=== PATIENT | female | born 1980 | race Caucasian/White ===

== ENCOUNTER 2016-08-22 06:27 | Day surgery (SDC) | payer OTHER ==
[2016-08-22] MEDS ORDERED: Lactated Ringers 1,000 ML IV SCH (07:00)
[2016-08-22] MEDS ORDERED: Lidocaine 2% 5 ML SDV ONE (07:07)
[2016-08-22] MEDS ORDERED: Midazolam 1 MG/ML 2 ML SDV ONE (07:08)
[2016-08-22] MEDS ORDERED: Propofol 200 MG/20 ML SDV ONE (07:08)
[2016-08-22] MEDS ORDERED: fentaNYL 250 MCG/5 ML SDV ONE (07:08)
[2016-08-22] MEDS ORDERED: Ondansetron 4 MG/2 ML SDV ONE (07:15)
[2016-08-22] MEDS ORDERED: Ketorolac 30 MG/ML SDV ONE (07:15)
--- NOTE | 2016-08-22 07:18 | PCM.PREANE ---
Preanesthetic Assessment - Anesthesia/Transfusion/Family Hx Anesthesia History: Prior Anesthesia Without Reaction Family History of Anesthesia Reaction: No Transfusion History: No Prior Transfusion(s) - Review of Systems General: No Symptoms Pulmonary: No Symptoms Cardiovascular: No Symptoms Gastrointestinal: No symptoms Neurological: No Symptoms Other: Reports: None - Physical Assessment O2 Sat by Pulse Oximetry: 100 Respiratory Rate: 16 Vital Signs: Last Vital Signs Temp 37.1 C 08/22/16 06:58 Pulse 70 08/22/16 06:58 Resp 16 08/22/16 06:58 BP 147/92 H 08/22/16 06:58 Pulse Ox 100 08/22/16 06:58 Height: 1.52 m Weight: 69.4 kg ASA Class: 2 Mental Status: Alert & Oriented x3 Airway Class: Mallampati = 2 Dentition: Reports: Normal Dentition Thyro-Mental Finger Breadths: 3 Mouth Opening Finger Breadths: 3 ROM/Head Extension: Full Lungs: Clear to auscultation, Normal respiratory effort Cardiovascular: Regular Rate, Regular Rhythm - Lab Values: Laboratory Last Values WBC 6.56 K/uL (4.0-11.0) 08/22/16 06:52 RBC 4.28 M/uL (4.30-5.90) L 08/22/16 06:52 Hgb 13.7 g/dL (12.0-16.0) 08/22/16 06:52 Hct 39.5 % (36.0-46.0) 08/22/16 06:52 MCV 92.3 fL (80.0-98.0) 08/22/16 06:52 MCH 32.0 pg (27.0-32.0) 08/22/16 06:52 MCHC 34.7 g/dL (31.0-37.0) 08/22/16 06:52 RDW Std Deviation 41.6 fl (28.0-62.0) 08/22/16 06:52 RDW Coeff of Derek 12 % (11.0-15.0) 08/22/16 06:52 Plt Count 237 K/uL (150-400) 08/22/16 06:52 MPV 9.80 fL (7.40-12.00) 08/22/16 06:52 Neut % (Auto) 71.6 % (48.0-80.0) 08/22/16 06:52 Lymph % (Auto) 20.0 % (16.0-40.0) 08/22/16 06:52 Becker % (Auto) 7.0 % (0.0-15.0) 08/22/16 06:52 Eos % (Auto) 1.1 % (0.0-7.0) 08/22/16 06:52 Baso % (Auto) 0.3 % (0.0-1.5) 08/22/16 06:52 Neut # (Auto) 4.7 K/uL (1.4-5.7) 08/22/16 06:52 Lymph # (Auto) 1.3 K/uL (0.6-2.4) 08/22/16 06:52 Becker # (Auto) 0.5 K/uL (0.0-0.8) 08/22/16 06:52 Eos # (Auto) 0.1 K/uL (0.0-0.7) 08/22/16 06:52 Baso # (Auto) 0.0 K/uL (0.0-0.1) 08/22/16 06:52 Nucleated RBC % 0.0 /100WBC 08/22/16 06:52 Nucleated RBCs # 0 K/uL 08/22/16 06:52 - Allergies Allergies/Adverse Reactions: Allergies Allergy/AdvReac Type Severity Reaction Status Date / Time No Known Allergies Allergy Verified 08/18/16 10:31 - Blood Blood Available: No - Anesthesia Plan Pre-Op Medication Ordered: None - Acknowledgements Anesthesia Type Planned: General Anesthesia Pt an Appropriate Candidate for the Planned Anesthesia: Yes Alternatives and Risks of Anesthesia Discussed w Pt/Guardian: Yes Pt/Guardian Understands and Agrees with Anesthesia Plan: Yes PreAnesthesia Questionnaire Cardiovascular History: Reports: Other (see below) Other Cardiovascular History: hx of elevated BP during C[employer] 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: Musculoskeletal History: Reports: Fracture Neurological History: Reports: Other (see below) (absance seizures as child) Psychiatric History: Reports: Anxiety, Depression Endocrine/Metabolic History: Reports: Hypothyroidism, Obesity/BMI 30+ - Past Surgical History Head Surgeries/Procedures: Reports: None HEENT Surgical History: Reports: Oral surgery GI Surgical History: Reports: Hernia, abdominal Other GI Surgeries/Procedures: hx of hernia repair Female Surgical History: Reports: Breast reconstruction, section, LEEP Other Female Surgeries/Procedures: hx breast augmentation and reconstruction Other Musculoskeletal Surgeries/Procedures:: hx surgery for fx wrist and hand ( pinning) - SUBSTANCE USE Smoking Status *Q: Never Smoker Recreational Drug Use History: No - HOME MEDS Home Medications: Home Meds Thyroid,Pork [Nature-Throid] 1 tab PO DAILY 08/18/16 [History] - CURRENT (IN HOUSE) MEDS Current Meds: Current Medications Lactated Ringer's (Ringers, Lactated) 1,000 mls @ 100 mls/hr IV ASDIRECTED ROXANNA Discontinued Medications Fentanyl (Sublimaze) Confirm Administered Dose 250 mcg .ROUTE .STK-MED ONE Stop: 08/22/16 07:09 Lidocaine (Xylocaine-Mpf 2%) Confirm Administered Dose 10 ml .ROUTE .STK-MED ONE Stop: 08/22/16 07:08 Midazolam HCl (Versed 1 Mg/Ml) Confirm Administered Dose 2 mg .ROUTE .STK-MED ONE Stop: 08/22/16 07:09 Propofol (Diprivan 20 Ml) Confirm Administered Dose 400 mg .ROUTE .STK-MED ONE Stop: 08/22/16 07:09
[2016-08-22] MEDS ORDERED: Misoprostol 200 MCG Tab ONE (07:31)
[2016-08-22] MEDS ORDERED: Doxycycline 100 MG in Sodium Chloride 0.9% 100 ML IV SCH (07:45)
[2016-08-22] MEDS ORDERED: Methylergonovine 0.2 MG/1 ML Amp ONE (08:06)
[2016-08-22] MEDS ORDERED: Acetaminophen/Codeine 300-30 MG Tab PO PRN (08:29)
[2016-08-22] MEDS ORDERED: fentaNYL 100 MCG/2 ML SDV IVPUSH PRN (08:30)
--- NOTE | 2016-08-22 08:38 | PCM.OPNOTE ---
[id number] and currettage. Sharp currettage. Placement of 1000mcg of rectal cyctotec Findings: Anteverted uterus approximately 10wks in size, bilaterally normal palpating adnexa. Uterus sounded to 9 cm initially. Disrupted posterior lip of cervix. Heavier than expected bleeding. Pre Op Diagnosis: Embryonic demise at 8wks. Desires surgical intervention Post-Op Diagnosis: Same Anesthesia Technique: General LMA Primary Surgeon: Lucila Woodruff Anesthesia Provider: Rocío [facility] Supervisor: Preet Hernandez Pathology: Products of conception Fluid Replacement, Intraop: 750 EBL in mLs: 300 Complications: None known Condition: Good Free Text/Narrative:: JobID#[id number]
[2016-08-22 12:11] VITALS: BP 141/78
--- NOTE | 2016-08-23 04:37 | OR ---
SURGEON: Lucila Woodruff DATE OF PROCEDURE: 08/22/2016 BRIEF PREOPERATIVE HISTORY: This is a 35-year-old, G 3, P 1, who presented to [facility] for a new OB visit and at the time of viability ultrasound, was found to have embryonic demise at 8 weeks gestation, just 3 days off her expected eight weeks and 3 days gestational age. There was no noted cardiac activity at that time and patient was counseled at that point on embryonic demise. It was discussed with patient no intervention for minimum of two weeks to see if she would be able to pass the embryonic demise on her own with no intervention versus medical intervention with misoprostol or surgical intervention with dilation and curettage. It was discussed with the patient that the most risky of all interventions was surgical as it had the risk of bleeding, infection, possible damage to the bowel, the bladder, ureters, nerves, blood vessels or possible causing intrauterine synechiae, uterine perforation or the most remote hysterectomy. The patient was also apprised of the fact of general anesthesia with the risk of general anesthesia and the risk of thromboembolic disease. The patient was allowed to think about various interventions for addressing her missed at this point. The patient called back a day later and desired surgical intervention, being apprised of all the risk of surgical intervention. PREOPERATIVE DIAGNOSES: 1. Embryonic demise at 8 weeks. 2. Desired surgical intervention. POSTOPERATIVE DIAGNOSES: 1. Embryonic demise at 8 weeks. 2. Desired surgical intervention. PROCEDURE PERFORMED: 1. Suction, dilation and curettage. 2. Sharp curettage. 3. Placement of 1000 mcg of rectal Cytotec. ANESTHESIA: General with LMA. ESTIMATED BLOOD LOSS: 300 mL. FLUID REPLACEMENT: In the OR was 750 mL. PATHOLOGY: Products of conception. FINDINGS: Anteverted uterus, approximately 10 weeks in size, bilateral normal palpating adnexa and ovaries. Uterus sounded to approximately 9 cm initially. Disrupted posterior lip of the cervix. Heavier than expected bleeding at the time of curettage. COMPLICATIONS: None known. CONDITION: Good. DESCRIPTION OF PROCEDURE: The patient was taken to the operating room, moved to her OR bed. In the OR, the patient did have Venodynes placed and they were operational prior to induction of general anesthesia. Once general anesthesia was appropriate, the patient was then placed in the dorsal lithotomy position in the [facility]. The patient then was examined under anesthesia and found to have approximately 10 week anteverted uterus with normal palpating adnexa. The patient was not noted to be bleeding at this point. Afterwards, the patient was then prepped and draped in the normal sterile fashion. A time-out was held to ensure appropriate patient, appropriate position, appropriate procedure. Of note, the patient did receive intraoperative doxycycline and would finish out in the PACU as it was not available preoperatively. After time-out was held, a speculum was then placed in the patient's vagina and the anterior lip of the cervix was grasped with a long Allis clamp. The uterus was then sounded with endometrial Pipelle and was found to be 9 cm in depth. A curved 7 suction curette was used. The suction curette was then advanced gently to the uterine fundus and with slow clockwise movements as the suction curette was retracted, tissue was noted in the suction curette tubing. There were several more passes with additional tissues. After removal of the suction curette, a port was placed on hold and a sharp uterine curette was used to scrape the uterus in all 4 quadrants until the uterine cry could be noted by the gritty texture. The were several more passes with the suction curette. A little more than expected bleeding was noted. The patient did receive IM Methergine. The patient also did receive 1000 mcg of rectal Cytotec. The gloves were changed and the patient's bleeding was monitored for a little bit longer and bleeding greatly improved. The patient's vagina was cleared of all clots and debris. Instruments were removed from patient's vagina. The patient was cleansed and pads were changed. The patient was taken down out of [facility]. The patient tolerated the procedure well. Sponge, lap, needle, and instrument counts were correct. The patient was eventually removed from the postoperative bed and taken to the PACU in awake and stable condition. The patient tolerated the procedure well. SASHA MASTERS /[id number] ROBERTO
== END 2016-08-22 09:55 | disposition home or self-care (01) ==
LOC: MW.SDS 06:27
PROVIDERS: ATTEND Obstetrics & Gynecology
PROC: 10D17ZZ Extraction of Products of Conception, Retained, Via Natural or Artificial Opening (ICD-10-PCS; principal; 2016-08-22)
PROC: 0U7C7ZZ Dilation of Cervix, Via Natural or Artificial Opening (ICD-10-PCS; 2016-08-22)
DX: O02.1 Missed abortion (principal); O99.284 Endocrine, nutritional and metabolic diseases complicating childbirth; E03.9 Hypothyroidism, unspecified; Z3A.08 8 weeks gestation of pregnancy
CPT/HCPCS: 36415; 59820; 85025; 86850; 86900; 86901; A9270; J1885; J2210; J2250; J2405; J3010; J7120; 01965; 88305; J2704

== ENCOUNTER 2019-02-27 10:32 | Observation (INO) | payer OTHER ==
--- NOTE | 2019-02-27 12:44 | US ---
EXAM DATE: 02/27/19 PATIENT'S AGE: 38 Biophysical profile: Multiple real-time images were obtained transabdominally. Transvaginal images of the cervix were also obtained. Comparison: Previous obstetrical ultrasound not available for current . Findings: presentation: Cephalic Placenta: Anterior with no findings of placenta previa, no findings of abruption Amniotic fluid: KACEY 15.50 cm Cervix is closed with a length of 5.4 cm Biophysical profile: movement 2, breathing movement 2, tone 2 , amniotic fluid volume 2 Impression: 1. Single intrauterine fetus currently cephalic in presentation. 2. No findings of placenta previa. Normal cervical length. 3. 8 out of 8 on biophysical profile. Diagnostic code #1 Report Signed by Proxy. ROBERTO
--- NOTE | 2019-02-27 12:45 | US ---
EXAM DATE: 02/27/19 PATIENT'S AGE: 38 This study was dictated as part of previous obstetrical ultrasound. ROBERTO
[2019-02-27] MEDS ORDERED: metroNIDAZOLE 250 MG Tab PO ONE (18:29)
[2019-02-27] MEDS ORDERED: Labetalol 100 MG Tab PO ONE (18:30)
[2019-02-27 19:03] VITALS: BP 121/76; PULSE 86
== END 2019-02-28 09:10 | disposition home or self-care (01) ==
LOC: MW.OBCHECK 10:32 → MW.OB 10:32 → MW.OBCHECK 11:22 → MW.OB 11:22
PROVIDERS: ADMIT Obstetrics & Gynecology; ATTEND Obstetrics & Gynecology
DX: O46.92 Antepartum hemorrhage, unspecified, second trimester (principal); O09.522 Supervision of elderly multigravida, second trimester; Z3A.27 27 weeks gestation of pregnancy
CPT/HCPCS: 59025; 76817; 76819; 87480; 87510; 87660; A9270; G0378

== ENCOUNTER 2019-05-01 15:22 | Inpatient (IN) | payer OTHER ==
[2019-05-01] MEDS ORDERED: Labetalol 100 MG Tab PO STA (16:04)
[2019-05-01 16:56] LABS: BLOOD UREA NITROGEN,BUN 8 mg/dL (7.0-18.0); CARBON DIOXIDE,CO2 21.2 mmol/L (21.0-32.0); CHLORIDE,CL 104 mmol/L (98-107); GLUCOSE RANDOM 74 mg/dL (74-106); POTASSIUM,K 4.2 mmol/L (3.5-5.1); SODIUM,NA 137 mmol/L (136-145)
[2019-05-01] MEDS ORDERED: Morphine PF 10 MG/10 ML SDV ONE (17:15)
[2019-05-01] MEDS ORDERED: Sodium Chloride 0.9% 10 ML Syringe FLUSH PRN (17:17)
[2019-05-01] MEDS ORDERED: Citric Acid/Sodium Citrate Solution 30 ML Cup PO ONE (17:17)
[2019-05-01] MEDS ORDERED: ceFAZolin 2 GM in Premix Bag 1 BAG IV ONE (17:17)
[2019-05-01] MEDS ORDERED: Sodium Chloride 0.9% 2.5 ML Syringe FLUSH PRN (17:17)
[2019-05-01] MEDS ORDERED: Sodium Chloride 0.9% 10 ML SDV IV PRN (17:17)
[2019-05-01] MEDS ORDERED: Ketorolac 30 MG/ML SDV ONE (17:19)
[2019-05-01] MEDS ORDERED: Ondansetron 4 MG/2 ML SDV ONE (17:19)
[2019-05-01] MEDS ORDERED: Oxytocin 10 Units/1 ML SDV ONE (17:19)
[2019-05-01] MEDS ORDERED: Phenylephrine/Normal Saline 100 MCG/ML 10 ML Syringe ONE (17:20)
[2019-05-01] MEDS ORDERED: Calcium Gluconate 10% 1 GM/10 ML SDV IV PRN (17:24)
[2019-05-01] MEDS ORDERED: Labetalol 100 MG/20 ML MDV IVPUSH PRN (17:24)
[2019-05-01] MEDS ORDERED: Magnesium Sulfate/Water 4 GM in Premix Bag 1 BAG IV ONE (17:24)
[2019-05-01] MEDS ORDERED: Lactated Ringers 1,000 ML IV SCH ×2 (17:30→21:00)
[2019-05-01] MEDS ORDERED: Oxytocin/0.9 % Sodium Chloride 30 UNIT/500 ML BAG IV SCH (17:30)
--- NOTE | 2019-05-01 17:32 | PCM.PREANE ---
Preanesthetic Assessment - Anesthesia/Transfusion/Family Hx Anesthesia History: Prior Anesthesia Without Reaction Family History of Anesthesia Reaction: No Transfusion History: No Prior Transfusion(s) - Physical Assessment NPO Status Date: 05/01/19 NPO Status Time: 14:00 Height: 1.65 m Weight: 88.904 kg ASA Class: 1E Dentition: Reports: Normal Dentition Thyro-Mental Finger Breadths: 3 Mouth Opening Finger Breadths: 3 ROM/Head Extension: Full - Lab Values: Laboratory Last Values WBC 7.85 K/uL (4.0-11.0) 05/01/19 16:04 RBC 4.20 M/uL (4.30-5.90) L 05/01/19 16:04 Hgb 12.9 g/dL (12.0-16.0) 05/01/19 16:04 Hct 38.8 % (36.0-46.0) 05/01/19 16:04 MCV 92.4 fL (80.0-98.0) 05/01/19 16:04 MCH 30.7 pg (27.0-32.0) 05/01/19 16:04 MCHC 33.2 g/dL (31.0-37.0) 05/01/19 16:04 RDW Std Deviation 45.8 fl (28.0-62.0) 05/01/19 16:04 RDW Coeff of Derek 14 % (11.0-15.0) 05/01/19 16:04 Plt Count 227 K/uL (150-400) 05/01/19 16:04 MPV 11.00 fL (7.40-12.00) 05/01/19 16:04 Neut % (Auto) 76.0 % (48.0-80.0) 05/01/19 16:04 Lymph % (Auto) 15.4 % (16.0-40.0) L 05/01/19 16:04 Cascade % (Auto) 6.8 % (0.0-15.0) 05/01/19 16:04 Eos % (Auto) 1.4 % (0.0-7.0) 05/01/19 16:04 Baso % (Auto) 0.4 % (0.0-1.5) 05/01/19 16:04 Neut # (Auto) 6.0 K/uL (1.4-5.7) H 05/01/19 16:04 Lymph # (Auto) 1.2 K/uL (0.6-2.4) 05/01/19 16:04 Cascade # (Auto) 0.5 K/uL (0.0-0.8) 05/01/19 16:04 Eos # (Auto) 0.1 K/uL (0.0-0.7) 05/01/19 16:04 Baso # (Auto) 0.0 K/uL (0.0-0.1) 05/01/19 16:04 Nucleated RBC % 0.0 /100WBC 05/01/19 16:04 Nucleated RBCs # 0 K/uL 05/01/19 16:04 Sodium 137 mmol/L (136-145) 05/01/19 16:04 Potassium 4.2 mmol/L (3.5-5.1) 05/01/19 16:04 Chloride 104 mmol/L (98-107) 05/01/19 16:04 Carbon Dioxide 21.2 mmol/L (21.0-32.0) 05/01/19 16:04 BUN 8 mg/dL (7.0-18.0) 05/01/19 16:04 Creatinine 0.7 mg/dL (0.6-1.0) 05/01/19 16:04 Est Cr Clr Drug Dosing 99.98 mL/min 05/01/19 16:04 Estimated GFR (MDRD) > 60.0 ml/min 05/01/19 16:04 Glucose 74 mg/dL (74-106) 05/01/19 16:04 Uric Acid 4.6 mg/dL (2.6-7.2) 05/01/19 16:04 Calcium 8.7 mg/dL (8.5-10.1) 05/01/19 16:04 Total Bilirubin 0.4 mg/dL (0.2-1.0) 05/01/19 16:04 AST 22 IU/L (15-37) 05/01/19 16:04 ALT 24 IU/L (14-63) 05/01/19 16:04 Alkaline Phosphatase 140 U/L (46-116) H 05/01/19 16:04 Total Protein 6.7 g/dL (6.4-8.2) 05/01/19 16:04 Albumin 2.7 g/dL (3.4-5.0) L 05/01/19 16:04 Globulin 4.0 g/dL (2.6-4.0) 05/01/19 16:04 Albumin/Globulin Ratio 0.7 (0.9-1.6) L 05/01/19 16:04 TSH 3rd Generation 1.55 uIU/mL (0.36-3.74) 05/01/19 16:04 Ur Random Creatinine 38.0 mg/dL 05/01/19 16:04 U Random Total Protein 14.2 mg/dL (<11.9) H 05/01/19 16:04 Protein/Creatinin Ratio 0.4 05/01/19 16:04 - Allergies Allergies/Adverse Reactions: Allergies Allergy/AdvReac Type Severity Reaction Status Date / Time lisinopril Allergy Rash Verified 05/01/19 15:39 - Acknowledgements Anesthesia Type Planned: Spinal Pt an Appropriate Candidate for the Planned Anesthesia: Yes Alternatives and Risks of Anesthesia Discussed w Pt/Guardian: Yes Pt/Guardian Understands and Agrees with Anesthesia Plan: Yes PreAnesthesia Questionnaire Cardiovascular History: Reports: Hypertension Other Cardiovascular History: 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: Musculoskeletal History: Reports: Fracture Neurological History: Reports: Other (See Below) Psychiatric History: Reports: Anxiety, Depression Endocrine/Metabolic History: Reports: Hypothyroidism, Obesity/BMI 30+ - Infectious Disease History Infectious Disease History: Reports: Chicken Pox - Past Surgical History Head Surgeries/Procedures: Reports: None HEENT Surgical History: Reports: Oral Surgery GI Surgical History: Reports: Hernia, Abdominal, Other (See Below) Other GI Surgeries/Procedures: surgery 2010 Female Surgical History: Reports: Breast Reconstruction, Section, LEEP, Other (See Below) Other Female Surgeries/Procedures: D&C 2 years ago Other Musculoskeletal Surgeries/Procedures:: 2009 hx surgery for fx wrist and hand (pinning) - HOME MEDS Home Medications: Home Meds Aspirin 81 mg PO DAILY 02/27/19 [History] Labetalol [Normodyne] 100 mg PO BID 02/27/19 [History] No.116/Iron/Folic/Dha [Expecta Combo Pack] 02/27/19 [History] Sertraline [Zoloft] 50 mg PO DAILY 02/27/19 [History] Thyroid,Pork [Nature-Throid] 02/27/19 [History] - CURRENT (IN HOUSE) MEDS Current Meds: Current Medications Discontinued Medications Ketorolac Tromethamine (Toradol) Confirm Administered Dose 30 mg .ROUTE .STK- MED ONE Stop: 05/01/19 17:20 Labetalol HCl (Normodyne) 400 mg PO ONETIME STA Stop: 05/01/19 16:05 Morphine Sulfate (Duramorph Pf) Confirm Administered Dose 10 mg .ROUTE .STK-MED ONE Stop: 05/01/19 17:16 Ondansetron HCl (Zofran) Confirm Administered Dose 4 mg .ROUTE .STK-MED ONE Stop: 05/01/19 17:20 Oxytocin (Pitocin) Confirm Administered Dose 20 unit .ROUTE .STK-MED ONE Stop: 05/01/19 17:20 Phenylephrine HCl (Phenylephrine In Ns 100 Mcg/Ml) Confirm Administered Dose 1 mg .ROUTE .STK-MED ONE Stop: 05/01/19 17:21
[2019-05-01] MEDS ORDERED: Labetalol 100 MG/20 ML MDV ONE (18:06)
[2019-05-01] MEDS: Magnesium Sulfate/Water 20 GM/500 ML BAG IV SCH (18:55)
[2019-05-01] MEDS ORDERED: Octyl 2-Cyanoacrylate 1 Tube ONE (19:44)
[2019-05-01] MEDS ORDERED: Acetaminophen/oxyCODONE 325-5 MG Tab PO PRN ×2 (20:20→20:54)
[2019-05-01] MEDS ORDERED: fentaNYL 100 MCG/2 ML SDV IVPUSH PRN (20:20)
[2019-05-01] MEDS ORDERED: Nalbuphine 10 MG/1 ML Vial IVPUSH PRN (20:20)
--- NOTE | 2019-05-01 20:53 | PCM.OPNOTE ---
- General Post-Op/Procedure Note Date of Surgery/Procedure: 05/01/19 Operative Procedure(s): repeat low transverse Findings: Liveborn male 9/7 weight pending, normal pelvis Pre Op Diagnosis: 36 3/7 weeks, chronic hypertension with severe pre-eclampsia, previous Post-Op Diagnosis: Same Anesthesia Technique: Spinal Primary Surgeon: Kim Quintana Anesthesia Provider: Raheem Petit [employer] Technician: Jose J Holman Pathology: placenta to pathology. Fluid Replacement, Intraop: 1,500 EBL in mLs: 600 Complications: None Known Condition: Good
[2019-05-01] MEDS ORDERED: Ondansetron 4 MG/2 ML SDV IVPUSH PRN (20:54)
[2019-05-01] MEDS ORDERED: Lanolin 100% Cream 7 GM Tube TOP PRN (20:54)
[2019-05-01] MEDS ORDERED: Tranexamic Acid 1,000 MG in Sodium Chloride 0.9% 100 ML IV PRN (20:54)
[2019-05-01] MEDS ORDERED: Bisacodyl 10 MG Supp RECTAL PRN (20:54)
[2019-05-01] MEDS ORDERED: Oxytocin 10 Units/1 ML SDV IM PRN (20:54)
[2019-05-01] MEDS ORDERED: Misoprostol 200 MCG Tab RECTAL PRN (20:54)
[2019-05-01] MEDS ORDERED: Ketorolac 30 MG/ML SDV IVPUSH SCH (21:00)
[2019-05-01] MEDS ORDERED: Oxytocin/Lactated Ringers 30 UNIT/500 ML BAG IV SCH (21:00)
[2019-05-01] MEDS ORDERED: Labetalol 100 MG Tab PO SCH (21:00)
--- NOTE | 2019-05-01 21:30 | PCM.POSTAN ---
POST ANESTHESIA ASSESSMENT - MENTAL STATUS Mental Status: Alert - VITAL SIGNS Vital Signs: Last Vital Signs Temp 36.8 C 05/01/19 20:53 Pulse 65 05/01/19 21:13 Resp 15 05/01/19 21:13 BP 95/59 L 05/01/19 21:13 Pulse Ox 96 05/01/19 21:13 - RESPIRATORY Respiratory Status: Respiratory Rate WNL - CARDIOVASCULAR CV Status: Pulse Rate WNL - GASTROINTESTINAL GI Status: No Symptoms - POST OP HYDRATION Hydration Status: Adequate & Stable
--- NOTE | 2019-05-01 22:02 | OR ---
SURGEON: Kim Quintana M.D. DATE OF PROCEDURE: 05/01/2019 PREOPERATIVE DIAGNOSES: 36 and 3/7 week intrauterine , chronic hypertension with superimposed severe preeclampsia, prior delivery, declines vaginal trial of labor. POSTOPERATIVE DIAGNOSES: 36 and 3/7 week intrauterine , chronic hypertension with superimposed severe preeclampsia, prior delivery, declines vaginal trial of labor. PROCEDURE: Repeat low-transverse section. PRIMARY SURGEON: Kim Quintana M.D. ANESTHESIA: Spinal. ESTIMATED BLOOD LOSS: 600 mL. FLUIDS: 1500 mL crystalloid. FINDINGS: Live-born male, score 9 and 7. Weight of 2810 g. Normal-appearing uterus, tubes, and ovaries. COMPLICATIONS: None known. DISPOSITION: Mother is stable, in LDR in good condition. Baby is in nursery under the care of the pin drafter operator. COMPLICATIONS: None known. BRIEF HISTORY: This is a 38-year-old female. She is G4, P1-1-1-1. She presents at 36 and 3/7 weeks' gestation for routine OB visit. Diastolic blood pressure initially was measured at 95 and then 98. She has been taking 200 mg twice a day of labetalol. This was increased over recent weeks. She was sent to Labor and Delivery. She received 400 mg of labetalol p.o. and laboratory studies were drawn. She had a diastolic then at 105. Her protein-creatinine ratio was elevated at 0.4. Additionally, her reflexes were hyperreflexic and therefore decision was made to proceed with delivery due to severe preeclampsia at 36 and 3/7 weeks' gestation. She was counseled regarding the risk of the baby being transferred at this slightly gestation due to the level of our nursery and was offered transfer prior to delivery, which she declined. Her has been complicated by the chronic hypertension followed with serial ultrasounds. Also, she did have a NIPT screen in the late 1st trimester that was positive; however, she had consultation with Maternal Medicine, which showed normal anatomy and also an amniocentesis which was performed and showed normal chromosomes as well as normal microarray. With all of this, the Maternal Medicine physician felt that it was acceptable for her to deliver locally. Her chronic hypertension was treated with 100 mg b.i.d. of labetalol throughout most of the and increased over the past 2 to 3 weeks with significant increase in blood pressure at this visit. The risks of delivery in general were discussed including bleeding, infection, injury to bowel, bladder, blood vessels or other organs, risk of thromboembolic event, and risk of anesthesia. Understanding all these risks, she does desire to proceed. DESCRIPTION OF PROCEDURE: With the patient in left tilt position, under adequate spinal analgesia, the abdomen was prepped with chlorhexidine and draped in usual fashion for abdominal surgery. SCDs were in place. Whitman catheter had been placed and she received 2 g of Ancef IV. After documentation of adequate analgesia, the prior cicatrix was excised and the incision was carried through the subcutaneous tissue to the fascia, which was scored transversely in the midline. The fascial incision was extended laterally using curved Weaver scissors and was elevated from the underlying rectus muscle using sharp and blunt dissection. The peritoneum was identified and elevated with hemostats and a Metzenbaum scissor was used to enter the peritoneal cavity. A finger was placed into the peritoneal cavity with no adhesions noted. The Pedro O retractor was placed. The visceroperitoneum of the lower uterine segment was incised to develop an adequate bladder flap. A transverse curvilinear incision was made over the lower uterine segment with a scalpel. A finger was used to enter the amniotic cavity. Clear fluid was noted. The head was delivered via the uterine incision with fundal pressure and the infant was bulb suctioned by nose and mouth followed by subsequent delivery of the remainder of the infant's body. The cord was allowed to pulsate and was clamped x2 and cut after it had ceased to pulsate, and cord blood was collected for cord ABGs as well as routine cord blood sampling. The infant was handed to Dr. Lee, who was in attendance at delivery and was a live-born male, score 9 and 7, weighing 2810 g. Initially, the was active with excellent tone, pink with a good cry, but at approximately 3 minutes of life began having difficulty with breathing and was then transferred to the Nursery. The placenta was removed by manual extraction. The uterus was cleaned with a dry laparotomy tape. Cervix was opened with ring forceps and the uterus was closed with a running lock suture of 0 Polysorb followed by an imbricating layer of 0 Polysorb. The posterior cul-de- sac and pericolic gutters were cleaned with a wet laparotomy tape. Tubes and ovaries were inspected and were hemostatic. The uterine incision was inspected and was hemostatic. The Pedro O retractor was removed, and with 1 last inspection confirming complete hemostasis of the uterine incision, the peritoneum and muscle were closed with a running lock suture of 0 Polysorb. The posterior aspect of the fascia was inspected and areas of bleeding that were noted were cauterized. The fascia was closed with a running suture of 0 Polysorb. Subcutaneous tissue was irrigated. Any areas of bleeding that were noted were cauterized. The skin was closed with a running subcuticular suture of 3-0 Monocryl followed by Dermabond. Final sponge, needle, and instrument counts were reported as correct. There were no known complications. Mother remains in recovery in good condition, infant in nursery in good condition. YING MASTERS /[id number]
[2019-05-01] MEDS: diphenhydrAMINE 50 MG/ML SDV IVPUSH PRN (22:15)
[2019-05-02] MEDS: Ketorolac 30 MG/ML SDV IVPUSH SCH ×4 (02:33→22:06)
[2019-05-02] MEDS: Magnesium Sulfate/Water 20 GM/500 ML BAG IV SCH (03:43)
[2019-05-02] MEDS: diphenhydrAMINE 50 MG/ML SDV IVPUSH PRN ×2 (04:45→14:10)
--- NOTE | 2019-05-02 08:16 | PCM.PNPP ---
- General Info Date of Service: 05/02/19 Functional Status: Reports: Pain Controlled, Ambulating, Other (denies headache , visual change or shortness of breath.). Denies: Urinating (catheter in) - Review of Systems General: Reports: No Symptoms HEENT: Reports: No Symptoms Pulmonary: Reports: No Symptoms Cardiovascular: Reports: No Symptoms Gastrointestinal: Reports: No Symptoms Genitourinary: Reports: No Symptoms Musculoskeletal: Reports: No Symptoms Skin: Reports: No Symptoms Neurological: Reports: No Symptoms Psychiatric: Reports: No Symptoms - Patient Data Vital Signs - Most Recent: Last Vital Signs Temp 36.4 C 05/02/19 05:03 Pulse 88 05/02/19 07:05 Resp 16 05/02/19 07:05 BP 106/61 05/02/19 07:05 Pulse Ox 98 05/02/19 07:05 Weight - Most Recent: 88.507 kg I&O - Last 24 Hours: Intake & Output 05/01/19 05/02/19 05/02/19 22:59 06:59 14:59 Intake Total 3200 Output Total 700 Balance 3200 -700 Lab Results - Last 24 Hours: Laboratory Results - last 24 hr 05/01/19 05/01/19 05/01/19 Range/Units 16:04 16:04 16:04 WBC 7.85 (4.0-11.0) K/uL RBC 4.20 L (4.30-5.90) M/uL Hgb 12.9 (12.0-16.0) g/dL Hct 38.8 (36.0-46.0) % MCV 92.4 (80.0-98.0) fL MCH 30.7 (27.0-32.0) pg MCHC 33.2 (31.0-37.0) g/dL RDW Std Deviation 45.8 (28.0-62.0) fl RDW Coeff of Derek 14 (11.0-15.0) % Plt Count 227 (150-400) K/uL MPV 11.00 (7.40-12.00) fL Neut % (Auto) 76.0 (48.0-80.0) % Lymph % (Auto) 15.4 L (16.0-40.0) % [place] % (Auto) 6.8 (0.0-15.0) % Eos % (Auto) 1.4 (0.0-7.0) % Baso % (Auto) 0.4 (0.0-1.5) % Neut # (Auto) 6.0 H (1.4-5.7) K/uL Lymph # (Auto) 1.2 (0.6-2.4) K/uL [place] # (Auto) 0.5 (0.0-0.8) K/uL Eos # (Auto) 0.1 (0.0-0.7) K/uL Baso # (Auto) 0.0 (0.0-0.1) K/uL Nucleated RBC % 0.0 /100WBC Nucleated RBCs # 0 K/uL Sodium 137 (136-145) mmol/L Potassium 4.2 (3.5-5.1) mmol/L Chloride 104 (98-107) mmol/L Carbon Dioxide 21.2 (21.0-32.0) mmol/L BUN 8 (7.0-18.0) mg/dL Creatinine 0.7 (0.6-1.0) mg/dL Est Cr Clr Drug Dosing 99.98 mL/min Estimated GFR (MDRD) > 60.0 ml/min Glucose 74 (74-106) mg/dL Uric Acid 4.6 (2.6-7.2) mg/dL Calcium 8.7 (8.5-10.1) mg/dL Magnesium (1.8-2.4) mg/dL Total Bilirubin 0.4 (0.2-1.0) mg/dL AST 22 (15-37) IU/L ALT 24 (14-63) IU/L Alkaline Phosphatase 140 H (46-116) U/L Total Protein 6.7 (6.4-8.2) g/dL Albumin 2.7 L (3.4-5.0) g/dL Globulin 4.0 (2.6-4.0) g/dL Albumin/Globulin Ratio 0.7 L (0.9-1.6) TSH 3rd Generation 1.55 (0.36-3.74) uIU/mL Ur Random Creatinine 38.0 mg/dL U Random Total Protein 14.2 H (<11.9) mg/dL Protein/Creatinin Ratio 0.4 Blood Type Antibody Screen 01/06/1905/01/19 05/02/19 Range/Units 17:42 22:01 03:54 WBC (4.0-11.0) K/uL RBC (4.30-5.90) M/uL Hgb (12.0-16.0) g/dL Hct (36.0-46.0) % MCV (80.0-98.0) fL MCH (27.0-32.0) pg MCHC (31.0-37.0) g/dL RDW Std Deviation (28.0-62.0) fl RDW Coeff of Derek (11.0-15.0) % Plt Count (150-400) K/uL MPV (7.40-12.00) fL Neut % (Auto) (48.0-80.0) % Lymph % (Auto) (16.0-40.0) % [place] % (Auto) (0.0-15.0) % Eos % (Auto) (0.0-7.0) % Baso % (Auto) (0.0-1.5) % Neut # (Auto) (1.4-5.7) K/uL Lymph # (Auto) (0.6-2.4) K/uL [place] # (Auto) (0.0-0.8) K/uL Eos # (Auto) (0.0-0.7) K/uL Baso # (Auto) (0.0-0.1) K/uL Nucleated RBC % /100WBC Nucleated RBCs # K/uL Sodium (136-145) mmol/L Potassium (3.5-5.1) mmol/L Chloride (98-107) mmol/L Carbon Dioxide (21.0-32.0) mmol/L BUN (7.0-18.0) mg/dL Creatinine (0.6-1.0) mg/dL Est Cr Clr Drug Dosing mL/min Estimated GFR (MDRD) ml/min Glucose (74-106) mg/dL Uric Acid (2.6-7.2) mg/dL Calcium (8.5-10.1) mg/dL Magnesium 4.6 H 5.6 H (1.8-2.4) mg/dL Total Bilirubin (0.2-1.0) mg/dL AST (15-37) IU/L ALT (14-63) IU/L Alkaline Phosphatase (46-116) U/L Total Protein (6.4-8.2) g/dL Albumin (3.4-5.0) g/dL Globulin (2.6-4.0) g/dL Albumin/Globulin Ratio (0.9-1.6) TSH 3rd Generation (0.36-3.74) uIU/mL Ur Random Creatinine mg/dL U Random Total Protein (<11.9) mg/dL Protein/Creatinin Ratio Blood Type A POSITIVE Antibody Screen NEGATIVE 05/02/19 Range/Units 05:58 WBC (4.0-11.0) K/uL RBC (4.30-5.90) M/uL Hgb 10.7 L (12.0-16.0) g/dL Hct 32.3 L (36.0-46.0) % MCV (80.0-98.0) fL MCH (27.0-32.0) pg MCHC (31.0-37.0) g/dL RDW Std Deviation (28.0-62.0) fl RDW Coeff of Derek (11.0-15.0) % Plt Count (150-400) K/uL MPV (7.40-12.00) fL Neut % (Auto) (48.0-80.0) % Lymph % (Auto) (16.0-40.0) % [place] % (Auto) (0.0-15.0) % Eos % (Auto) (0.0-7.0) % Baso % (Auto) (0.0-1.5) % Neut # (Auto) (1.4-5.7) K/uL Lymph # (Auto) (0.6-2.4) K/uL [place] # (Auto) (0.0-0.8) K/uL Eos # (Auto) (0.0-0.7) K/uL Baso # (Auto) (0.0-0.1) K/uL Nucleated RBC % /100WBC Nucleated RBCs # K/uL Sodium (136-145) mmol/L Potassium (3.5-5.1) mmol/L Chloride (98-107) mmol/L Carbon Dioxide (21.0-32.0) mmol/L BUN (7.0-18.0) mg/dL Creatinine (0.6-1.0) mg/dL Est Cr Clr Drug Dosing mL/min Estimated GFR (MDRD) ml/min Glucose (74-106) mg/dL Uric Acid (2.6-7.2) mg/dL Calcium (8.5-10.1) mg/dL Magnesium (1.8-2.4) mg/dL Total Bilirubin (0.2-1.0) mg/dL AST (15-37) IU/L ALT (14-63) IU/L Alkaline Phosphatase (46-116) U/L Total Protein (6.4-8.2) g/dL Albumin (3.4-5.0) g/dL Globulin (2.6-4.0) g/dL Albumin/Globulin Ratio (0.9-1.6) TSH 3rd Generation (0.36-3.74) uIU/mL Ur Random Creatinine mg/dL U Random Total Protein (<11.9) mg/dL Protein/Creatinin Ratio Blood Type Antibody Screen Med Orders - Current: Current Medications Bisacodyl (Dulcolax) 10 mg RECTAL ONETIME PRN PRN Reason: Constipation Calcium Gluconate (Calcium Gluconate) 1 gm IV ASDIRECTED PRN PRN Reason: respiratory distress Diphenhydramine HCl (Benadryl) 25 mg IVPUSH Q6H PRN PRN Reason: Itching or Nausea Last Admin: 05/02/19 04:45 Dose: 25 mg Docusate Sodium (Colace) 100 mg PO BID [facility] Emollient Ointment (Lansinoh Hpa) 0 gm TOP ASDIRECTED PRN PRN Reason: Sore Nipples Fentanyl (Sublimaze) 50 mcg IVPUSH Q5M PRN PRN Reason: Pain (severe 7-10) Stop: 05/02/19 20:20 Oxytocin/Sodium Chloride (Oxytocin 30 Unit/500 Ml-Ns) 30 unit in 500 mls @ 250 mls/hr IV TITRATE [facility] Lactated Ringer's (Ringers, Lactated) 1,000 mls @ 500 mls/hr IV BOLUS ROXANNA Last Admin: 05/01/19 18:58 Dose: 500 mls/hr Magnesium Sulfate (Magnesium Sulfate In Water Premix) 20 gm in 500 mls @ 50 mls /hr IV ASDIRECTED [facility]; Protocol Last Admin: 05/02/19 03:43 Dose: 2 gm/hr, 50 mls/hr Lactated Ringer's (Ringers, Lactated) 1,000 mls @ 125 mls/hr IV ASDIRECTED [facility] Oxytocin/Lactated Ringer's (Pitocin In Lr 30 Units/500 Ml) 30 unit in 500 mls @ 999 mls/hr IV TITRATE [facility]; Protocol Tranexamic Acid 1,000 mg/ (Sodium Chloride) 110 mls @ 660 mls/hr IV ONETIME PRN PRN Reason: Bleeding Ibuprofen (Motrin) 800 mg PO Q8H PRN PRN Reason: mild pain or fever Ketorolac Tromethamine (Toradol) 30 mg IVPUSH Q6H [facility] Stop: 05/02/19 23:01 Last Admin: 05/02/19 02:33 Dose: 30 mg Labetalol HCl (Normodyne) 10 mg IVPUSH Q10M PRN; Protocol PRN Reason: Hypertension Last Admin: 05/01/19 18:15 Dose: 10 mg Labetalol HCl (Normodyne) 100 mg PO BID [facility] Misoprostol (Cytotec) 1,000 mcg RECTAL ONETIME PRN PRN Reason: excessive bleeding Nalbuphine HCl (Nubain) 2.5 mg IVPUSH Q3H PRN PRN Reason: Pruritis Stop: 05/02/19 20:20 Ondansetron HCl (Zofran) 4 mg IVPUSH Q4H PRN PRN Reason: Nausea/Vomiting Oxycodone/Acetaminophen (Percocet 325-5 Mg) 1 tab PO ONETIME PRN PRN Reason: Pain (moderate 4-6) Oxycodone/Acetaminophen (Percocet 325-5 Mg) 1 tab PO Q4H PRN PRN Reason: Pain (moderate 4-6) Oxycodone/Acetaminophen (Percocet 325-5 Mg) 2 tab PO Q4H PRN PRN Reason: Pain (moderate 4-6) Oxytocin (Pitocin) 10 unit IM ASDIRECTED PRN PRN Reason: Excessive Vaginal Bleeding Thyroid,Pork [Nature (-Throid] 16.25 Mg) 1 each PO DAILY [facility] Sertraline HCl (Zoloft) 50 mg PO DAILY [facility] Sodium Chloride (Saline Flush) 10 ml FLUSH ASDIRECTED PRN PRN Reason: Keep Vein Open Sodium Chloride (Saline Flush) 2.5 ml FLUSH ASDIRECTED PRN PRN Reason: Keep Vein Open Sodium Chloride (Normal Saline) 10 ml IV ASDIRECTED PRN PRN Reason: IV Use Discontinued Medications Citric Acid/Sodium Citrate (Bicitra Solution) 30 ml PO ONETIME ONE Stop: 05/01/19 17:18 Cefazolin Sodium/Dextrose 2 gm (/ Premix) 50 mls @ 100 mls/hr IV ONETIME ONE Stop: 05/01/19 17:46 Magnesium Sulfate 4 gm/ Premix 100 mls @ 300 mls/hr IV BOLUS ONE Stop: 05/01/19 17:43 Last Admin: 05/01/19 18:29 Dose: 300 mls/hr Ketorolac Tromethamine (Toradol) Confirm Administered Dose 30 mg .ROUTE .STK- MED ONE Stop: 05/01/19 17:20 Ketorolac Tromethamine (Toradol) 30 mg IVPUSH Q6H [facility] Stop: 05/02/19 21:01 Labetalol HCl (Normodyne) 400 mg PO ONETIME STA Stop: 05/01/19 16:05 Labetalol HCl (Normodyne) Confirm Administered Dose 100 mg .ROUTE .STK-MED ONE Stop: 05/01/19 18:07 Morphine Sulfate (Duramorph Pf) Confirm Administered Dose 10 mg .ROUTE .STK-MED ONE Stop: 05/01/19 17:16 Octyl Cyanoacrylate (Dermabond Advance) Confirm Administered Dose 1 applic .ROUTE .STK-MED ONE Stop: 05/01/19 19:45 Ondansetron HCl (Zofran) Confirm Administered Dose 4 mg .ROUTE .STK-MED ONE Stop: 05/01/19 17:20 Oxytocin (Pitocin) Confirm Administered Dose 20 unit .ROUTE .STK-MED ONE Stop: 05/01/19 17:20 Phenylephrine HCl (Phenylephrine In Ns 100 Mcg/Ml) Confirm Administered Dose 1 mg .ROUTE .STK-MED ONE Stop: 05/01/19 17:21 - Interaction Infant Disposition, : transferred to [facility] Support Person: - Recovery Exam Fundal Tone: Firm Fundal Level: 2 Fingerbreadths Below Umbilicus Fundal Placement: Midline Lochia Amount: Scant Lochia Color: Rubra/Red Perineum Description: Intact, Minimal Bruising/Swelling Episiotomy/Laceration: None Bladder Status: Indwelling Catheter in Place Urinary Elimination: Indwelling Catheter - Exam General: Alert, Oriented HEENT: Pupils Equal Neck: Supple Lungs: Clear to Auscultation, Normal Respiratory Effort Cardiovascular: Regular Rate, Regular Rhythm GI/Abdominal Exam: Normal Bowel Sounds, Soft, Non-Tender, No Organomegaly Extremities: Normal Inspection, Non-Tender. No: No Pedal Edema (1+) Skin: Warm, Dry, Intact Neurological: No New Focal Deficit Psy/Mental Status: Alert, Normal Affect, Normal Mood - Problem List & Annotations (1) Chronic hypertension with superimposed pre-eclampsia SNOMED Code(s): 45584730 Code(s): O11.9 - PRE-EXISTING HYPERTENSION WITH PRE-ECLAMPSIA, UNSP TRIMESTER Status: Acute Current Visit: Yes (2) delivery delivered SNOMED Code(s): 378512164 Code(s): O82 - ENCOUNTER FOR DELIVERY WITHOUT INDICATION Status: Acute Current Visit: Yes - Problem List Review Problem List Initiated/Reviewed/Updated: Yes - My Orders Last 24 Hours: My Active Orders 05/01/19 15:42 Up ad Lydia [RC] ASDIRECTED Vital Signs [RC] PER UNIT ROUTINE Resuscitation Status Routine 05/01/19 17:17 Peripheral IV Care [RC] . DIRECTED Sodium Chloride 0.9% [Normal Saline] 10 ml IV ASDIRECTED PRN Sodium Chloride 0.9% [Saline Flush] 10 ml FLUSH ASDIRECTED PRN Sodium Chloride 0.9% [Saline Flush] 2.5 ml FLUSH ASDIRECTED PRN 05/01/19 17:18 Patient Status [ADT] Routine Procedure Site Prep Instruct [RC] ASDIRECTED Verify Patient Consent Obtain [RC] ASDIRECTED Vital Signs [RC] PER UNIT ROUTINE Peripheral IV Insertion Adult [OM.PC] Routine Schedule Procedure [COMM] Per Unit Routine 05/01/19 17:24 Calcium Gluconate 1 gm IV ASDIRECTED PRN Labetalol [Normodyne] 10 mg IVPUSH Q10M PRN 05/01/19 17:25 Patient Status [ADT] Routine Communication Order [RC] PRN Communication Order [RC] PRN Height and Weight [RC] DAILY Intake and Output [RC] QSHIFT Notify Provider [RC] PRN Oxygen Therapy [RC] PRN Vital Signs [RC] ASDIRECTED Electronic Heart Tones Ext w TOCO [WOMSER] Per Unit Routine Peripheral IV Insertion Adult [OM.PC] Routine 05/01/19 17:28 Equipment to Bedside [RC] PRN Notify Provider Status Change [RC] ASDIRECTED 05/01/19 17:30 Lactated Ringers [Ringers, Lactated] 1,000 ml IV BOLUS Magnesium Sulfate/Water [Magnesium Sulfate in Water Premix] 20 gm in 500 ml IV ASDIRECTED Oxytocin/0.9 % Sodium Chloride [Oxytocin 30 Unit/500 ML-NS] 30 unit in 500 ml IV TITRATE Deep Tendon Reflexes [WOMSER] Q1H 05/01/19 17:42 RAPID PLASMA REAGIN, QUANT [REF] Routine 05/01/19 18:30 Deep Tendon Reflexes [WOMSER] Q1H 05/01/19 19:30 Deep Tendon Reflexes [WOMSER] Q1H 05/01/19 20:00 Notify Provider Vital Signs [RC] PRN 05/01/19 20:30 Deep Tendon Reflexes [WOMSER] Q1H 05/01/19 20:54 Acetaminophen/oxyCODONE [Percocet 325-5 MG] 1 tab PO Q4H PRN Acetaminophen/oxyCODONE [Percocet 325-5 MG] 2 tab PO Q4H PRN Lanolin [Lansinoh HPA] See Dose Instructions TOP ASDIRECTED PRN Ondansetron [Zofran] 4 mg IVPUSH Q4H PRN Oxytocin [Pitocin] 10 unit IM ASDIRECTED PRN Tranexamic Acid [Cyklokapron] 1,000 mg Sodium Chloride 0.9% [Normal Saline] 100 ml IV ONETIME bisacodyL [Dulcolax] 10 mg RECTAL ONETIME PRN diphenhydrAMINE [Benadryl] 25 mg IVPUSH Q6H PRN miSOPROStoL [Cytotec] 1,000 mcg RECTAL ONETIME PRN 05/01/19 20:55 Antiembolic Devices [RC] PER UNIT ROUTINE Communication Order [RC] PER UNIT ROUTINE Communication Order [RC] PER UNIT ROUTINE Communication Order [RC] Per Unit Routine Notify Provider Intake and Out [RC] ASDIRECTED RT Incentive Spirometry [RC] Q2HWA Assess Lochia [WOMSER] Per Unit Routine Assess Uterine Involution [WOMSER] Per Unit Routine Breast Pump [WOMSER] Per Unit Routine Peripheral IV Discontinue [OM.PC] Routine Sequential Compression Device [OM.PC] Per Unit Routine 05/01/19 21:00 Docusate Sodium [Colace] 100 mg PO BID Labetalol [Normodyne] 100 mg PO BID Lactated Ringers [Ringers, Lactated] 1,000 ml IV ASDIRECTED Oxytocin/Lactated Ringers [Pitocin in LR 30 Units/500 ML] 30 unit in 500 ml IV TITRATE 05/01/19 21:30 Deep Tendon Reflexes [WOMSER] Q1H 05/01/19 22:30 Deep Tendon Reflexes [WOMSER] Q1 05/01/19 23:00 Ketorolac [Toradol] 30 mg IVPUSH Q6H 05/01/19 23:30 Deep Tendon Reflexes [WOMSER] Q1 05/02/19 00:30 Deep Tendon Reflexes [WOMSER] Q1 05/02/19 01:30 Deep Tendon Reflexes [WOMSER] Q1 05/02/19 02:30 Deep Tendon Reflexes [WOMSER] Q1 05/02/19 03:30 Deep Tendon Reflexes [WOMSER] [facility] 05/02/19 04:30 Deep Tendon Reflexes [WOMSER] [facility] 05/02/19 05:30 Deep Tendon Reflexes [WOMSER] [facility] 05/02/19 06:30 Deep Tendon Reflexes [WOMSER] [facility] 05/02/19 07:30 Deep Tendon Reflexes [WOMSER] [facility] 05/02/19 08:30 Deep Tendon Reflexes [WOMSER] Q1 05/02/19 09:00 Patient's Own Medication [Ptom] 1 each PO DAILY Sertraline [Zoloft] 50 mg PO DAILY 05/02/19 09:30 Deep Tendon Reflexes [WOMSER] Q1H 05/02/19 10:00 MAGNESIUM [CHEM] Q6H 05/02/19 10:30 Deep Tendon Reflexes [WOMSER] Q1H 05/02/19 11:30 Deep Tendon Reflexes [WOMSER] Q1H 05/02/19 12:30 Deep Tendon Reflexes [WOMSER] Q1H 05/02/19 13:30 Deep Tendon Reflexes [WOMSER] Q1H 05/02/19 14:30 Deep Tendon Reflexes [WOMSER] Q1H 05/02/19 15:30 Deep Tendon Reflexes [WOMSER] Q1H 05/02/19 16:00 MAGNESIUM [CHEM] Q6H 05/02/19 16:30 Deep Tendon Reflexes [WOMSER] Q1H 05/02/19 Breakfast Clear Liquid Diet [DIET] 05/03/19 05:00 Ibuprofen [Motrin] 800 mg PO Q8H PRN - Assessment Assessment:: POD#1 after repeat for severe pre-eclampsia superimposed on chronic hypertension. Baby transferred to [facility] is stable. Denies any neurologic symptoms, tolerating mg well. level is 5.4 Pain is well controlled. - Plan Plan:: Cnotinue postop care Continue labetalol scheduled twice per day. Discontinue magnesium Does not have thyroid medication with her, not available in pharmacy, held for now. May ambulate and shower this afternoon. Dr. Mittal will cover, anticipate discharge in am.
--- NOTE | 2019-05-02 08:27 | PCM48HPAN ---
Post Anesthesia Note - EVALUATION WITHIN 48HRS OF ANESTHETIC Vital Signs in Normal Range: Yes Patient Participated in Evaluation: Yes Respiratory Function Stable: Yes Airway Patent: Yes Cardiovascular Function Stable: Yes Hydration Status Stable: Yes Pain Control Satisfactory: Yes Nausea and Vomiting Control Satisfactory: Yes Mental Status Recovered: Yes Vital Signs: Last Vital Signs Temp 36.3 C 05/02/19 08:10 Pulse 81 05/02/19 08:10 Resp 16 05/02/19 08:10 BP 121/68 05/02/19 08:10 Pulse Ox 98 05/02/19 08:10 - COMMENTS/OBSERVATIONS Free Text/Narrative:: Doing well. No problems or concerns at present.
[2019-05-02] MEDS: Labetalol 100 MG Tab PO SCH ×2 (09:22→20:47)
[2019-05-02] MEDS: Docusate Sodium 100 MG Cap PO SCH ×2 (09:23→20:48)
[2019-05-02] MEDS: THYROID PORK 16.25 MG PO SCH (11:47)
[2019-05-03] MEDS: Acetaminophen/oxyCODONE 325-5 MG Tab PO PRN ×2 (04:26→08:49)
[2019-05-03] MEDS ORDERED: Ibuprofen 800 MG Tab PO PRN (05:00)
[2019-05-03] MEDS: Labetalol 100 MG Tab PO SCH (08:48)
[2019-05-03] MEDS: Docusate Sodium 100 MG Cap PO SCH (08:49)
[2019-05-03] MEDS: THYROID PORK 16.25 MG PO SCH (08:51)
[2019-05-03 08:52] VITALS: BP 124/71; PULSE 77
[2019-05-03] MEDS ORDERED: Sertraline 50 MG Tab PO SCH (09:00)
--- NOTE | 2019-05-03 10:52 | PCM.PNPP ---
- General Info Date of Service: 05/03/19 Functional Status: Reports: Pain Controlled, Tolerating Diet, Ambulating, Urinating - Review of Systems General: Reports: No Symptoms HEENT: Reports: No Symptoms Pulmonary: Reports: No Symptoms Cardiovascular: Reports: No Symptoms Gastrointestinal: Reports: No Symptoms Genitourinary: Reports: No Symptoms Musculoskeletal: Reports: No Symptoms Skin: Reports: No Symptoms Neurological: Reports: No Symptoms Psychiatric: Reports: No Symptoms - General Info Date of Service: 05/03/19 - Patient Data Vital Signs - Most Recent: Last Vital Signs Temp 36.5 C 05/03/19 08:00 Pulse 77 05/03/19 08:48 Resp 16 05/03/19 08:00 BP 124/71 05/03/19 08:48 Pulse Ox 97 05/03/19 08:00 Weight - Most Recent: 195 lb 2 oz I&O - Last 24 Hours: Intake & Output 05/02/19 05/03/19 05/03/19 22:59 06:59 14:59 Intake Total 665 Output Total 2600 Balance -1935 Lab Results - Last 24 Hours: Laboratory Results - last 24 hr 05/02/19 05/02/19 Range/Units 10:03 15:53 Magnesium 4.8 H 3.2 H (1.8-2.4) mg/dL Med Orders - Current: Current Medications Bisacodyl (Dulcolax) 10 mg RECTAL ONETIME PRN PRN Reason: Constipation Calcium Gluconate (Calcium Gluconate) 1 gm IV ASDIRECTED PRN PRN Reason: respiratory distress Diphenhydramine HCl (Benadryl) 25 mg IVPUSH Q6H PRN PRN Reason: Itching or Nausea Last Admin: 05/02/19 14:10 Dose: 25 mg Docusate Sodium (Colace) 100 mg PO BID ROXANNA Last Admin: 05/03/19 08:49 Dose: 100 mg Emollient Ointment (Lansinoh Hpa) 0 gm TOP ASDIRECTED PRN PRN Reason: Sore Nipples Last Admin: 05/02/19 14:09 Dose: 1 applic Oxytocin/Sodium Chloride (Oxytocin 30 Unit/500 Ml-Ns) 30 unit in 500 mls @ 250 mls/hr IV TITRATE [facility] Lactated Ringer's (Ringers, Lactated) 1,000 mls @ 500 mls/hr IV BOLUS ROXANNA Last Admin: 05/01/19 18:58 Dose: 500 mls/hr Lactated Ringer's (Ringers, Lactated) 1,000 mls @ 125 mls/hr IV ASDIRECTED [facility] Oxytocin/Lactated Ringer's (Pitocin In Lr 30 Units/500 Ml) 30 unit in 500 mls @ 999 mls/hr IV TITRATE [facility]; Protocol Tranexamic Acid 1,000 mg/ (Sodium Chloride) 110 mls @ 660 mls/hr IV ONETIME PRN PRN Reason: Bleeding Ibuprofen (Motrin) 800 mg PO Q8H PRN PRN Reason: mild pain or fever Labetalol HCl (Normodyne) 10 mg IVPUSH Q10M PRN; Protocol PRN Reason: Hypertension Last Admin: 05/01/19 18:15 Dose: 10 mg Labetalol HCl (Normodyne) 200 mg PO BID [facility] Last Admin: 05/03/19 08:48 Dose: 200 mg Misoprostol (Cytotec) 1,000 mcg RECTAL ONETIME PRN PRN Reason: excessive bleeding Ondansetron HCl (Zofran) 4 mg IVPUSH Q4H PRN PRN Reason: Nausea/Vomiting Oxycodone/Acetaminophen (Percocet 325-5 Mg) 1 tab PO ONETIME PRN PRN Reason: Pain (moderate 4-6) Oxycodone/Acetaminophen (Percocet 325-5 Mg) 1 tab PO Q4H PRN PRN Reason: Pain (moderate 4-6) Oxycodone/Acetaminophen (Percocet 325-5 Mg) 2 tab PO Q4H PRN PRN Reason: Pain (moderate 4-6) Last Admin: 05/03/19 08:49 Dose: 2 tab Oxytocin (Pitocin) 10 unit IM ASDIRECTED PRN PRN Reason: Excessive Vaginal Bleeding Thyroid,Pork [Nature (-Throid] 16.25 Mg) 1 each PO DAILY [facility] Last Admin: 05/03/19 08:51 Dose: Not Given Sertraline HCl (Zoloft) 50 mg PO DAILY [facility] Last Admin: 05/03/19 08:49 Dose: 50 mg Sodium Chloride (Saline Flush) 10 ml FLUSH ASDIRECTED PRN PRN Reason: Keep Vein Open Sodium Chloride (Saline Flush) 2.5 ml FLUSH ASDIRECTED PRN PRN Reason: Keep Vein Open Sodium Chloride (Normal Saline) 10 ml IV ASDIRECTED PRN PRN Reason: IV Use Discontinued Medications Citric Acid/Sodium Citrate (Bicitra Solution) 30 ml PO ONETIME ONE Stop: 05/01/19 17:18 Fentanyl (Sublimaze) 50 mcg IVPUSH Q5M PRN PRN Reason: Pain (severe 7-10) Stop: 05/02/19 20:20 Cefazolin Sodium/Dextrose 2 gm (/ Premix) 50 mls @ 100 mls/hr IV ONETIME ONE Stop: 05/01/19 17:46 Magnesium Sulfate 4 gm/ Premix 100 mls @ 300 mls/hr IV BOLUS ONE Stop: 05/01/19 17:43 Last Admin: 05/01/19 18:29 Dose: 300 mls/hr Magnesium Sulfate (Magnesium Sulfate In Water Premix) 20 gm in 500 mls @ 50 mls /hr IV ASDIRECTED [facility]; Protocol Last Admin: 05/02/19 03:43 Dose: 2 gm/hr, 50 mls/hr Ketorolac Tromethamine (Toradol) Confirm Administered Dose 30 mg .ROUTE .STK- MED ONE Stop: 05/01/19 17:20 Ketorolac Tromethamine (Toradol) 30 mg IVPUSH Q6H [facility] Stop: 05/02/19 21:01 Ketorolac Tromethamine (Toradol) 30 mg IVPUSH Q6H [facility] Stop: 05/02/19 23:01 Last Admin: 05/02/19 22:06 Dose: 30 mg Labetalol HCl (Normodyne) 400 mg PO ONETIME STA Stop: 05/01/19 16:05 Labetalol HCl (Normodyne) Confirm Administered Dose 100 mg .ROUTE .STK-MED ONE Stop: 05/01/19 18:07 Labetalol HCl (Normodyne) 100 mg PO BID [facility] Morphine Sulfate (Duramorph Pf) Confirm Administered Dose 10 mg .ROUTE .STK-MED ONE Stop: 05/01/19 17:16 Nalbuphine HCl (Nubain) 2.5 mg IVPUSH Q3H PRN PRN Reason: Pruritis Stop: 05/02/19 20:20 Octyl Cyanoacrylate (Dermabond Advance) Confirm Administered Dose 1 applic .ROUTE .STK-MED ONE Stop: 05/01/19 19:45 Ondansetron HCl (Zofran) Confirm Administered Dose 4 mg .ROUTE .STK-MED ONE Stop: 05/01/19 17:20 Oxytocin (Pitocin) Confirm Administered Dose 20 unit .ROUTE .STK-MED ONE Stop: 05/01/19 17:20 Phenylephrine HCl (Phenylephrine In Ns 100 Mcg/Ml) Confirm Administered Dose 1 mg .ROUTE .STK-MED ONE Stop: 05/01/19 17:21 - Infant Interaction Disposition, : transferred to [place] Support Person: - Recovery Exam Fundal Tone: Firm Fundal Level: 2 Fingerbreadths Below Umbilicus Fundal Placement: Midline Lochia Amount: Scant Lochia Color: Rubra/Red Perineum Description: Intact, Minimal Bruising/Swelling Episiotomy/Laceration: None Bladder Status: Voiding Urinary Elimination: Voided - Exam Quality Assessment: Supplemental Oxygen General: Alert, Oriented, Cooperative, No Acute Distress HEENT: Pupils Equal, Pupils Reactive Neck: Supple, Trachea Midline Lungs: Normal Respiratory Effort GI/Abdominal Exam: Normal Bowel Sounds, Soft, Non-Tender, No Distention Extremities: Normal Inspection, Normal Range of Motion, Non-Tender, No Pedal Edema, Other (Reflexes 2+) Skin: Warm, Dry, Intact Wound/Incisions: Healing Well, No Drainage Neurological: No New Focal Deficit Psy/Mental Status: Alert, Normal Affect, Normal Mood - Problem List Review Problem List Initiated/Reviewed/Updated: Yes - My Orders Last 24 Hours: My Active Orders 05/03/19 10:44 Ready for Discharge [RC] PER UNIT ROUTINE - Assessment Assessment:: POD#2 after repeat for severe pre-eclampsia superimposed on chronic hypertension. S/p Mag sulfate, BP stable. Baby transferred to [place] is stable. - Plan Plan:: Cnotinue postop care BP stable, normotensive to low mild range. Continue labetalol 200mg BID. No s/s of severe preeclampsia. Hgb 10.7, minimal bleeding, no s/s of anemia, advised to continue PNV. Baby in [place], plan to go there today. Discharge home today. Reviewed BP checks daily and signs of worsening preeclampsia.
== END 2019-05-03 11:55 | disposition home or self-care (01) | DRG 787 ==
LOC: MW.OBCHECK 15:22 → MW.OB 15:23 → MW.OBCHECK 17:00 → MW.OB 17:22 → OBSVTOIN 20:15 → MW.OB 05-02 02:00
PROVIDERS: ADMIT Obstetrics & Gynecology; ATTEND Obstetrics & Gynecology
PROC: 10D00Z1 Extraction of Products of Conception, Low, Open Approach (ICD-10-PCS; principal; 2019-05-01)
DX: O34.211 Maternal care for low transverse scar from previous cesarean delivery (principal); O10.92 Unspecified pre-existing hypertension complicating childbirth; O11.4 Pre-existing hypertension with pre-eclampsia, complicating childbirth; Z3A.36 36 weeks gestation of pregnancy; Z37.0 Single live birth
CPT/HCPCS: 36415; 59025; 80053; 82570; 83735; 84156; 84443; 84550; 85014; 85018; 85025; 86593; 86850; 86900; 86901; A9270-GY; J1200; J1885; J2270; J2370; J2405; J2590; J3475; J3490; J7120